=== PATIENT | male | born 1935 | race Caucasian/White ===

== ENCOUNTER 2016-11-16 23:22 | Emergency (ER) | payer MEDICARE, OTHER ==
[2016-11-16] MEDS ORDERED: Cephalexin 500 MG Cap PO ONE (23:47)
[2016-11-17 00:52] VITALS: BP 113/71
--- NOTE | 2016-11-17 02:14 | ER ---
DATE SEEN: 11/16/2016 CHIEF COMPLAINT: Nosebleed. HISTORY OF PRESENT ILLNESS: This is an 81-year-old male with epistaxis. This started tonight spontaneously after he sneezed and bleeding for about an hour, complains of mild headache. PAST MEDICAL HISTORY: Hypertension and CAD. He has been taking Plavix for more than 5 years along with aspirin. SOCIAL HISTORY: He does not smoke or drink. ALLERGIES: No known allergies. MEDICATIONS: Please see the hard copy scanned into the chart. PHYSICAL EXAMINATION: GENERAL: He is a well-nourished male. VITAL SIGNS: His blood pressure is in the 150s systolic. He is afebrile. HEENT: Head is normocephalic. Eyes, normal. Nose, active bleeding from the right nostril. IMPRESSION: Epistaxis. PLAN: My plan, I put Rhino Rocket and I advised him to follow up on Friday or tomorrow to have it removed. For now, I will put him on 5 days of cephalexin to prevent bacterial infection from the Rhino Rocket. Time seen was 11:45 p.m. /[id number] HERACLIO/ONI
== END 2016-11-17 00:50 | disposition home or self-care (01) ==
LOC: FB.ED 23:22
DX: R04.0 Epistaxis (principal); I10 Essential (primary) hypertension; I25.10 Atherosclerotic heart disease of native coronary artery without angina pectoris; Z79.82 Long term (current) use of aspirin
CPT/HCPCS: 30903; 99282; 99283; A9270; 30901

== ENCOUNTER 2018-04-25 11:12 | Inpatient (IN) | payer MEDICARE, OTHER ==
[2018-04-25] MEDS: Potassium Citrate 10 MEQ Tab.ER PO SCH ×2 (14:00→20:08)
[2018-04-25] MEDS ORDERED: Nitroglycerin 0.4 MG Tab.SL SL PRN (14:27)
[2018-04-25] MEDS ORDERED: Cyclobenzaprine 10 MG Tab PO PRN (14:27)
[2018-04-25] MEDS ORDERED: DENOSUMAB 60 MG SUBCUT SCH (14:30)
[2018-04-25] MEDS: Ferrous Sulfate 325 MG Tab PO SCH ×2 (16:48→18:49)
[2018-04-25] MEDS: metFORMIN 1,000 MG Tab PO SCH ×2 (16:48→19:16)
[2018-04-25] MEDS: Acetaminophen 325 MG Tab PO PRN (16:54)
--- NOTE | 2018-04-25 19:28 | PCM.HP ---
H&P History of Present Illness - General Date of Service: 04/25/18 Admit Problem/Dx: Admission Diagnosis/Problem Admission Diagnosis/Problem Knee joint replacement by other means Source of Information: Patient History Limitations: Reports: No Limitations - History of Present Illness Initial Comments - Free Text/Narative: Blu is an 82-year-old male with right knee replacement on the , at [facility] , and is here for rehabilitation. He has a history of hypertension, coronary disease status post 3 stents in 2010, type 2 diabetes BPH that are all stable. A1c 6.0 2 months ago, on metformin. Complains of some pain on the right knee and decreased energy and strength, is otherwise healthy. Blu stays alone in [place], [place]. - Related Data Allergies/Adverse Reactions: Allergies Allergy/AdvReac Type Severity Reaction Status Date / Time Slwaanq-Poe-Nuh Reductase Allergy Joint Pain Verified 11/16/16 23:52 Inhibitor Home Medications: Home Meds Cyclobenzaprine [Flexeril] 5 - 10 mg PO TID PRN 11/17/16 [History] Denosumab [Xgeva] 60 mg SUBCUT ASDIRECTED 11/17/16 [History] Ezetimibe [Zetia] 10 mg PO BEDTIME 11/17/16 [History] Finasteride [Proscar] 5 mg PO DAILY 11/17/16 [History] Metoprolol Tartrate 12.5 mg PO BEDTIME 11/17/16 [History] Multivitamin [Multivitamins] 1 each PO BEDTIME 11/17/16 [History] Nitroglycerin [Nitrostat] 0.4 mg SL Q5M PRN 11/17/16 [History] Tamsulosin [Flomax] 0.4 mg BEDTIME 11/17/16 [History] traZODone 50 mg PO BEDTIME 11/17/16 [History] Acetaminophen [Tylenol] 650 mg PO Q6H PRN 04/25/18 [History] Apixaban [Eliquis] 2.5 mg PO BID 04/25/18 [History] Aspirin 81 mg PO DAILY 04/25/18 [History] Bimatoprost [LUMIGAN 0.01% Ophth Soln] 1 drop EYEBOTH BEDTIME 04/25/18 [History] Cholecalciferol (Vitamin D3) [Vitamin D3] 1,000 unit PO DAILY 04/25/18 [History] Ferrous Gluconate 240 mg PO DAILY 04/25/18 [History] Flaxseed Oil [Flax Oil] 1,000 mg PO BID 04/25/18 [History] Losartan [Cozaar] 25 mg PO BEDTIME 04/25/18 [History] Lutein/Minerals/Vit A,C & E [Ocuvite] 1 tab PO DAILY 04/25/18 [History] Oxybutynin [Oxybutynin ER] 5 mg PO BEDTIME 04/25/18 [History] Potassium 99 mg PO DAILY 04/25/18 [History] Potassium Citrate [Potassium Citrate ER] 15 meq PO BID 04/25/18 [History] Propylene Glycol [Systane Balance] 1 drop EYEBOTH BID PRN 04/25/18 [History] metFORMIN [Glucophage] 1,000 mg PO WITHDINNER 04/25/18 [History] metFORMIN [Glucophage] 500 mg PO WITHBREAKFAST 04/25/18 [History] traMADol [Ultram] 50 mg PO Q4H PRN 04/25/18 [History] Past Medical History HEENT History: Reports: Cataract, Sinusitis, Other (See Below) Other HEENT History: dry eyes Cardiovascular History: Reports: High Cholesterol, [place] Gastrointestinal History: Reports: Cholelithiasis, Colon Polyp, GERD Genitourinary History: Reports: Prostate Disorder, Urinary Incontinence Musculoskeletal History: Reports: Fracture Other Musculoskeletal History: fx ribs, fx breast bone, comp fx spine Endocrine/Metabolic History: Reports: Diabetes, Type II Hematologic History: Reports: Anemia - Infectious Disease History Infectious Disease History: Reports: Chicken Pox, Measles, Mumps - Past Surgical History HEENT Surgical History: Reports: Adenoidectomy, Cataract Surgery, Tonsillectomy Other HEENT Surgeries/Procedures: bilat cataract Cardiovascular Surgical History: Reports: Carotid Stents Other Cardiovascular Surgeries/Procedures: 3 stents placed GI Surgical History: Reports: Appendectomy, Cholecystectomy, Colon, Colonoscopy Musculoskeletal Surgical History: Reports: None Social & Family History - Family History Family Medical History: Noncontributory - Tobacco Use Years of Tobacco use: 30 Second Hand Smoke Exposure: No - Caffeine Use Caffeine Use: Reports: Coffee, Tea Other Caffeine Use: 8-10 cups daily - Alcohol Use Days Per Week of Alcohol Use: 5 Number of Drinks Per Day: 0 Total Drinks Per Week: 0 - Recreational Drug Use Recreational Drug Use: No H&P Review of Systems - Review of Systems: Review Of Systems: ROS reveals no pertinent complaints other than HPI. Exam - Exam Exam: See Below - Vital Signs Vital Signs: Last Vital Signs Temp 98.4 F 04/25/18 19:12 Pulse 81 04/25/18 19:12 Resp 20 04/25/18 19:12 BP 149/44 H 04/25/18 19:12 Pulse Ox 92 L 04/25/18 19:12 Weight: 78.199 kg - Exam General: Alert, Oriented, 4 HEENT: PERRLA, Hearing Intact, Mucosa Moist & Armstrong, Nares Patent, Normal Nasal Septum, Posterior Pharynx Clear, Conjunctiva Clear, EOMI, EACs Clear, TMs Clear Neck: Supple, Trachea Midline, 2 Lungs: Clear to Auscultation, Normal Respiratory Effort Cardiovascular: Regular Rate, Regular Rhythm GI/Abdominal Exam: Normal Bowel Sounds, Soft, Non-Tender, No Organomegaly, No Distention, No Abnormal Bruit, No Mass, Pelvis Stable (Male) Exam: Deferred Rectal (Males) Exam: Deferred Back Exam: Normal Inspection, Full Range of Motion, NT Extremities: Normal Inspection, Normal Range of Motion, Non-Tender, No Pedal Edema, Normal Capillary Refill Skin: Warm, Dry, Intact Neurological: Cranial Nerves Intact, Reflexes Equal Bilateral Neuro Extensive - Mental Status: Alert, Oriented x3, Normal Mood/Affect, Normal Cognition Neuro Extensive - Motor, Sensory, Reflexes: CN II-XII Intact, Normal Gait, Normal Reflexes Psychiatric: Alert, Normal Affect, Normal Mood - Problem List (1) S/P total knee arthroplasty SNOMED Code(s): 7018762895089, 644759504, 9962411182416 ICD Code: Z96.659 - PRESENCE OF UNSPECIFIED ARTIFICIAL KNEE JOINT Status: Acute Current Visit: Yes Qualifiers: Laterality: right Qualified Code(s): Z96.651 - Presence of right artificial knee joint (2) HTN (hypertension) SNOMED Code(s): 20200143 ICD Code: I10 - ESSENTIAL (PRIMARY) HYPERTENSION Status: Chronic Current Visit: Yes Qualifiers: Hypertension type: essential hypertension Qualified Code(s): I10 - Essential (primary) hypertension (3) CAD (coronary artery disease) SNOMED Code(s): 19632011 ICD Code: I25.10 - ATHSCL HEART DISEASE OF [place] CORONARY ARTERY W/O ANG PCTRS Status: Chronic Current Visit: Yes Qualifiers: Coronary Disease-Associated Artery/Lesion type: [place] artery [place] vs. transplanted heart: [place] heart (4) BPH (benign prostatic hyperplasia) SNOMED Code(s): 886091966 ICD Code: N40.0 - BENIGN PROSTATIC HYPERPLASIA WITHOUT LOWER URINRY TRACT SYMP Status: Chronic Current Visit: Yes Qualifiers: Lower urinary tract symptom presence: symptoms present (5) Diabetes type 2, controlled SNOMED Code(s): 10418325, 903429313 ICD Code: E11.9 - TYPE 2 DIABETES MELLITUS WITHOUT COMPLICATIONS Status: Chronic Current Visit: Yes Qualifiers: Diabetes mellitus usp insulin use: without continuous churn buttermaker use Diabetes mellitus complication status: without complication Qualified Code(s): E11.9 - Type 2 diabetes mellitus without complications (6) Osteoporosis SNOMED Code(s): 64287085 ICD Code: M81.0 - AGE-RELATED OSTEOPOROSIS W/O CURRENT PATHOLOGICAL FRACTURE Status: Chronic Current Visit: Yes Qualifiers: Osteoporosis type: age-related (7) Glaucoma SNOMED Code(s): 09287335 ICD Code: H40.9 - UNSPECIFIED GLAUCOMA Status: Chronic Current Visit: Yes Qualifiers: Glaucoma type: open-angle Laterality: unspecified laterality Problem List Initiated/Reviewed/Updated: Yes Orders Last 24hrs: Active Orders 24 hr Category Date Time Status Patient Status [ADT] Routine ADT 04/25/18 11:20 Active Activity as Tolerated [RC] 09,13,17,21 Care 04/25/18 13:45 Active Wound Care [RC] 08,16,00 Care 04/25/18 13:47 Active Consult to Case Management/Motel Manager [CONS] Cons 04/25/18 11:56 Active Routine OT Evaluation and Treatment [CONS] Routine Cons 04/25/18 13:45 Active PT Evaluation and Treatment [CONS] Routine Cons 04/25/18 13:46 Active Regular Diet [DIET] Diet 04/25/18 Dinner Active Acetaminophen [Tylenol] Med 04/25/18 14:27 Active 650 mg PO Q6H PRN Apixaban [Eliquis] Med 04/25/18 21:00 Active 2.5 mg PO BID Aspirin Med 04/26/18 09:00 Active 81 mg PO DAILY Cholecalciferol (Vitamin D3) [Vitamin D3] Med 04/26/18 09:00 Active 1,000 units PO DAILY Cyclobenzaprine [Flexeril] Med 04/25/18 14:27 Active 10 mg PO TID PRN Ezetimibe [Zetia] Med 04/25/18 21:00 Active 10 mg PO BEDTIME Ferrous Sulfate Med 04/25/18 18:00 Active 325 mg PO BIDMEALS Finasteride [Proscar] Med 04/26/18 09:00 Active 5 mg PO DAILY Latanoprost [Xalatan 0.005% Ophth Soln] Med 04/25/18 21:00 Active 0 ml EYEBOTH BEDTIME Losartan [Cozaar] Med 04/25/18 21:00 Active 25 mg PO BEDTIME Metoprolol Tartrate [Lopressor] Med 04/25/18 21:00 Active 12.5 mg PO BEDTIME Multivitamins [Tab-A-Norma] Med 04/25/18 21:00 Active 1 tab PO BEDTIME Nitroglycerin [Nitrostat] Med 04/25/18 14:27 Active 0.4 mg SL Q5M PRN Oxybutynin [Oxybutynin ER] Med 04/25/18 21:00 Active 5 mg PO BEDTIME Potassium Citrate Med 04/25/18 21:00 Active 10 meq PO TID Tamsulosin [Flomax] Med 04/25/18 21:00 Active 0.4 mg PO BEDTIME metFORMIN [Glucophage] Med 04/25/18 18:00 Active 1,000 mg PO WITHDINNER metFORMIN [Glucophage] Med 04/26/18 08:00 Active 500 mg PO WITHBREAKFAST traMADol [Ultram] Med 04/25/18 14:27 Active 50 mg PO Q4H PRN traZODone Med 04/25/18 21:00 Active 50 mg PO BEDTIME Antiembolic Hose [OM.PC] Routine Oth 04/25/18 13:30 Ordered Ice Pack [Ice Therapy] [OM.PC] Routine Oth 04/25/18 13:43 Ordered Medication Orders Acetaminophen (Tylenol) 650 mg PO Q6H PRN PRN Reason: MILD PAIN Last Admin: 04/25/18 16:54 Dose: 650 mg Apixaban (Eliquis) 2.5 mg PO BID CELE Aspirin (Aspirin) 81 mg PO DAILY CELE Cholecalciferol (Vitamin D3) 1,000 units PO DAILY [facility] Cyclobenzaprine HCl (Flexeril) 10 mg PO TID PRN PRN Reason: Spasms Ezetimibe (Zetia) 10 mg PO BEDTIME [facility] Ferrous Sulfate (Ferrous Sulfate) 325 mg PO BIDMEALS [facility] Last Admin: 04/25/18 18:49 Dose: Admin: 04/25/18 16:48 Dose: 325 mg Finasteride (Proscar) 5 mg PO DAILY [facility] Latanoprost (Xalatan 0.005% Ophth Soln) 0 ml EYEBOTH BEDTIME [facility] Losartan Potassium (Cozaar) 25 mg PO BEDTIME [facility] Metformin HCl (Glucophage) 500 mg PO WITHBREAKFAST [facility] Metformin HCl (Glucophage) 1,000 mg PO WITHDINNER [facility] Last Admin: 04/25/18 19:16 Dose: Not Given Admin: 04/25/18 16:48 Dose: 1,000 mg Metoprolol Tartrate (Lopressor) 12.5 mg PO BEDTIME [facility] Multivitamins/Minerals/Vitamin C (Tab-A-Norma) 1 tab PO BEDTIME [facility] Nitroglycerin (Nitrostat) 0.4 mg SL Q5M PRN PRN Reason: Chest Pain Oxybutynin Chloride (Oxybutynin Er) 5 mg PO BEDTIME [facility] Potassium Citrate (Potassium Citrate) 10 meq PO TID [facility] Last Admin: 04/25/18 14:00 Dose: 10 meq Tamsulosin HCl (Flomax) 0.4 mg PO BEDTIME [facility] Tramadol HCl (Ultram) 50 mg PO Q4H PRN PRN Reason: pain Trazodone HCl (Trazodone) 50 mg PO BEDTIME [facility] Assessment/Plan Comment:: Blu is stable,had normal magnesium, and creatinine normalized before discharge. Hemoglobin at discharge was 11.0. We'll continue with current therapy , DVT prophylaxis with aspirin Eloquis, and resume all his home medications with exception of supplements
[2018-04-25] MEDS: Apixaban 2.5 MG Tab PO SCH (20:06)
[2018-04-25] MEDS: Losartan 25 MG Tab PO SCH (20:06)
[2018-04-25] MEDS: Oxybutynin 5 MG Tab.ER PO SCH (20:07)
[2018-04-25] MEDS: Metoprolol Tartrate 25 MG Tab PO SCH (20:07)
[2018-04-25] MEDS: Tamsulosin 0.4 MG Cap.ER PO SCH (20:07)
[2018-04-25] MEDS: Ezetimibe 10 MG Tab PO SCH (20:08)
[2018-04-25] MEDS: traZODone 50 MG Tab PO SCH (20:08)
[2018-04-25] MEDS: Multivitamin Tab PO SCH (20:08)
[2018-04-25] MEDS: Latanoprost 0.005% Ophth Soln 2.5 ML Bottle EYEBOTH SCH (20:09)
[2018-04-26] MEDS: metFORMIN 500 MG Tab PO SCH (09:30)
[2018-04-26] MEDS: Ferrous Sulfate 325 MG Tab PO SCH ×2 (09:30→17:05)
[2018-04-26] MEDS: Potassium Citrate 10 MEQ Tab.ER PO SCH ×3 (09:31→20:04)
[2018-04-26] MEDS: Cholecalciferol (Vitamin D3) 1,000 Unit Tab PO SCH (09:45)
[2018-04-26] MEDS: Finasteride 5 MG Tab PO SCH (09:45)
[2018-04-26] MEDS: Apixaban 2.5 MG Tab PO SCH ×2 (09:45→20:02)
[2018-04-26] MEDS: Aspirin 81 MG Tab.Chew PO SCH (09:45)
[2018-04-26] MEDS: traMADol 50 MG Tab PO PRN (10:02)
[2018-04-26] MEDS: metFORMIN 1,000 MG Tab PO SCH (17:05)
[2018-04-26] MEDS: Losartan 25 MG Tab PO SCH (20:02)
[2018-04-26] MEDS: Tamsulosin 0.4 MG Cap.ER PO SCH (20:03)
[2018-04-26] MEDS: Metoprolol Tartrate 25 MG Tab PO SCH (20:03)
[2018-04-26] MEDS: Oxybutynin 5 MG Tab.ER PO SCH (20:04)
[2018-04-26] MEDS: Multivitamin Tab PO SCH (20:04)
[2018-04-26] MEDS: traZODone 50 MG Tab PO SCH (20:05)
[2018-04-26] MEDS: Ezetimibe 10 MG Tab PO SCH (20:05)
[2018-04-26] MEDS: Latanoprost 0.005% Ophth Soln 2.5 ML Bottle EYEBOTH SCH (20:05)
[2018-04-27] MEDS: traMADol 50 MG Tab PO PRN ×3 (07:35→21:00)
[2018-04-27] MEDS: Finasteride 5 MG Tab PO SCH (09:37)
[2018-04-27] MEDS: Ferrous Sulfate 325 MG Tab PO SCH ×2 (09:38→18:22)
[2018-04-27] MEDS: Potassium Citrate 10 MEQ Tab.ER PO SCH ×3 (09:38→20:57)
[2018-04-27] MEDS: Apixaban 5 MG Tab PO SCH ×2 (09:38→20:54)
[2018-04-27] MEDS: Cholecalciferol (Vitamin D3) 1,000 Unit Tab PO SCH (09:38)
[2018-04-27] MEDS: Aspirin 81 MG Tab.Chew PO SCH (09:38)
[2018-04-27] MEDS: metFORMIN 500 MG Tab PO SCH (09:38)
--- NOTE | 2018-04-27 15:14 | US ---
INDICATION: Right leg pain and swelling, question DVT, post right knee replacement. DUPLEX ULTRASOUND, LOWER EXTREMITY VEINS: Utilizing 2-D real time, duplex Doppler spectral analysis and color flow imaging, examination of the right lower extremity veins was obtained 04/27/18, including common femoral vein, proximal greater saphenous vein, deep femoral vein, popliteal vein, posterior tibial vein, peroneal vein and anterior tibial vein and revealed no evidence of deep venous thrombosis or obstruction. Compression views showed no abnormal lack of compression to suggest thrombosis. No evidence of incompetence of the valves was identified. Interstitial edema was noted in the thigh and upper calf. IMPRESSION: Duplex ultrasound, lower extremity veins, shows no evidence of deep venous thrombosis or incompetence. Faxed to Dr. Elias. [facility]
[2018-04-27] MEDS: Acetaminophen 325 MG Tab PO PRN (18:22)
[2018-04-27] MEDS: metFORMIN 1,000 MG Tab PO SCH (18:23)
[2018-04-27] MEDS: Losartan 25 MG Tab PO SCH (20:52)
[2018-04-27] MEDS: Tamsulosin 0.4 MG Cap.ER PO SCH (20:55)
[2018-04-27] MEDS: Metoprolol Tartrate 25 MG Tab PO SCH (20:55)
[2018-04-27] MEDS: Oxybutynin 5 MG Tab.ER PO SCH (20:56)
[2018-04-27] MEDS: Multivitamin Tab PO SCH (20:57)
[2018-04-27] MEDS: traZODone 50 MG Tab PO SCH (20:57)
[2018-04-27] MEDS: Latanoprost 0.005% Ophth Soln 2.5 ML Bottle EYEBOTH SCH (20:58)
[2018-04-27] MEDS: Ezetimibe 10 MG Tab PO SCH (21:00)
[2018-04-28] MEDS: traMADol 50 MG Tab PO PRN ×2 (06:40→21:57)
[2018-04-28] MEDS: Ferrous Sulfate 325 MG Tab PO SCH ×2 (08:18→17:59)
[2018-04-28] MEDS: metFORMIN 500 MG Tab PO SCH (08:18)
[2018-04-28] MEDS: Apixaban 5 MG Tab PO SCH ×2 (08:18→21:55)
[2018-04-28] MEDS: Aspirin 81 MG Tab.Chew PO SCH (08:18)
[2018-04-28] MEDS: Cholecalciferol (Vitamin D3) 1,000 Unit Tab PO SCH (08:19)
[2018-04-28] MEDS: Finasteride 5 MG Tab PO SCH (08:19)
[2018-04-28] MEDS: Potassium Citrate 10 MEQ Tab.ER PO SCH ×3 (08:19→21:56)
[2018-04-28] MEDS: Acetaminophen 325 MG Tab PO PRN (15:09)
[2018-04-28] MEDS: metFORMIN 1,000 MG Tab PO SCH (17:59)
[2018-04-28] MEDS: Losartan 25 MG Tab PO SCH (21:54)
[2018-04-28] MEDS: Tamsulosin 0.4 MG Cap.ER PO SCH (21:55)
[2018-04-28] MEDS: Ezetimibe 10 MG Tab PO SCH (21:56)
[2018-04-28] MEDS: Multivitamin Tab PO SCH (21:56)
[2018-04-28] MEDS: traZODone 50 MG Tab PO SCH (21:56)
[2018-04-28] MEDS: Oxybutynin 5 MG Tab.ER PO SCH (21:56)
[2018-04-28] MEDS: Metoprolol Tartrate 25 MG Tab PO SCH (21:56)
[2018-04-28] MEDS: Latanoprost 0.005% Ophth Soln 2.5 ML Bottle EYEBOTH SCH (21:56)
[2018-04-29] MEDS: traMADol 50 MG Tab PO PRN ×2 (07:52→22:23)
[2018-04-29] MEDS: metFORMIN 500 MG Tab PO SCH (08:22)
[2018-04-29] MEDS: Ferrous Sulfate 325 MG Tab PO SCH ×2 (08:22→17:31)
[2018-04-29] MEDS: Apixaban 5 MG Tab PO SCH ×2 (08:23→21:33)
[2018-04-29] MEDS: Aspirin 81 MG Tab.Chew PO SCH (08:23)
[2018-04-29] MEDS: Potassium Citrate 10 MEQ Tab.ER PO SCH ×3 (08:23→21:34)
[2018-04-29] MEDS: Finasteride 5 MG Tab PO SCH (08:24)
[2018-04-29] MEDS: Cholecalciferol (Vitamin D3) 1,000 Unit Tab PO SCH (08:25)
[2018-04-29] MEDS ORDERED: PROPYLENE GLYCOL 0.6% EYEBOTH PRN (08:47)
[2018-04-29] MEDS: metFORMIN 1,000 MG Tab PO SCH (17:31)
[2018-04-29] MEDS: Losartan 25 MG Tab PO SCH (21:32)
[2018-04-29] MEDS: Tamsulosin 0.4 MG Cap.ER PO SCH (21:33)
[2018-04-29] MEDS: traZODone 50 MG Tab PO SCH (21:34)
[2018-04-29] MEDS: Metoprolol Tartrate 25 MG Tab PO SCH (21:34)
[2018-04-29] MEDS: Multivitamin Tab PO SCH (21:34)
[2018-04-29] MEDS: Oxybutynin 5 MG Tab.ER PO SCH (21:34)
[2018-04-29] MEDS: Ezetimibe 10 MG Tab PO SCH (21:35)
[2018-04-29] MEDS: Latanoprost 0.005% Ophth Soln 2.5 ML Bottle EYEBOTH SCH (21:38)
[2018-04-30] MEDS: traMADol 50 MG Tab PO PRN ×2 (08:25→20:39)
[2018-04-30] MEDS: Ferrous Sulfate 325 MG Tab PO SCH ×2 (08:27→17:46)
[2018-04-30] MEDS: metFORMIN 500 MG Tab PO SCH (08:28)
[2018-04-30] MEDS: Apixaban 5 MG Tab PO SCH (08:28)
[2018-04-30] MEDS: Aspirin 81 MG Tab.Chew PO SCH (08:28)
[2018-04-30] MEDS: Potassium Citrate 10 MEQ Tab.ER PO SCH ×2 (08:29→14:25)
[2018-04-30] MEDS: Finasteride 5 MG Tab PO SCH (08:29)
[2018-04-30] MEDS: Cholecalciferol (Vitamin D3) 1,000 Unit Tab PO SCH (08:29)
[2018-04-30] MEDS: metFORMIN 1,000 MG Tab PO SCH (17:46)
[2018-04-30] MEDS: Losartan 25 MG Tab PO SCH (20:36)
[2018-05-01] MEDS: Apixaban 5 MG Tab PO SCH ×2 (00:02→09:19)
[2018-05-01] MEDS: Tamsulosin 0.4 MG Cap.ER PO SCH (00:02)
[2018-05-01] MEDS: Metoprolol Tartrate 25 MG Tab PO SCH (00:03)
[2018-05-01] MEDS: Oxybutynin 5 MG Tab.ER PO SCH (00:05)
[2018-05-01] MEDS: Potassium Citrate 10 MEQ Tab.ER PO SCH ×2 (00:31→09:20)
[2018-05-01] MEDS: Multivitamin Tab PO SCH (00:31)
[2018-05-01] MEDS: traZODone 50 MG Tab PO SCH (00:32)
[2018-05-01] MEDS: Latanoprost 0.005% Ophth Soln 2.5 ML Bottle EYEBOTH SCH (00:32)
[2018-05-01] MEDS: Ezetimibe 10 MG Tab PO SCH (00:33)
[2018-05-01] MEDS: Ferrous Sulfate 325 MG Tab PO SCH (09:19)
[2018-05-01] MEDS: metFORMIN 500 MG Tab PO SCH (09:19)
[2018-05-01] MEDS: Aspirin 81 MG Tab.Chew PO SCH (09:19)
[2018-05-01] MEDS: Finasteride 5 MG Tab PO SCH (09:20)
[2018-05-01] MEDS: Cholecalciferol (Vitamin D3) 1,000 Unit Tab PO SCH (09:20)
[2018-05-01] MEDS: traMADol 50 MG Tab PO PRN (09:26)
--- NOTE | 2018-05-01 11:04 | PCM.PN ---
- General Info Date of Service: 05/01/18 Admission Dx/Problem (Free Text): Patient doing well. Wound healing to the right knee. No drainage. States he has little bit of swelling upper thigh discoloration. No pain. - Patient Data Vitals - Most Recent: Last Vital Signs Temp 98.1 F 05/01/18 08:00 Pulse 84 05/01/18 08:00 Resp 19 05/01/18 08:00 BP 116/63 05/01/18 08:00 Pulse Ox 94 L 05/01/18 08:00 Weight - Most Recent: 171 lb 1.6 oz Med Orders - Current: Current Medications Acetaminophen (Tylenol) 650 mg PO Q6H PRN PRN Reason: MILD PAIN Last Admin: 04/28/18 15:09 Dose: 650 mg Apixaban (Eliquis) 2.5 mg PO BID [facility] Stop: 05/04/18 21:01 Last Admin: 05/01/18 09:19 Dose: 2.5 mg Aspirin (Aspirin) 81 mg PO DAILY [facility] Last Admin: 05/01/18 09:19 Dose: 81 mg Cholecalciferol (Vitamin D3) 1,000 units PO DAILY [facility] Last Admin: 05/01/18 09:20 Dose: 1,000 units Cyclobenzaprine HCl (Flexeril) 10 mg PO TID PRN PRN Reason: Spasms Ezetimibe (Zetia) 10 mg PO BEDTIME [facility] Last Admin: 05/01/18 00:33 Dose: 10 mg Ferrous Sulfate (Ferrous Sulfate) 325 mg PO BIDMEALS [facility] Last Admin: 05/01/18 09:19 Dose: 325 mg Finasteride (Proscar) 5 mg PO DAILY [facility] Last Admin: 05/01/18 09:20 Dose: 5 mg Latanoprost (Xalatan 0.005% Ophth Soln) 0 ml EYEBOTH BEDTIME [facility] Last Admin: 05/01/18 00:32 Dose: 1 drop Losartan Potassium (Cozaar) 25 mg PO BEDTIME [facility] Last Admin: 04/30/18 20:36 Dose: 25 mg Metformin HCl (Glucophage) 500 mg PO WITHBREAKFAST [facility] Last Admin: 05/01/18 09:19 Dose: 500 mg Metformin HCl (Glucophage) 1,000 mg PO WITHDINNER [facility] Last Admin: 04/30/18 17:46 Dose: 1,000 mg Metoprolol Tartrate (Lopressor) 12.5 mg PO BEDTIME [facility] Last Admin: 05/01/18 00:03 Dose: 12.5 mg Multivitamins/Minerals/Vitamin C (Tab-A-Norma) 1 tab PO BEDTIME [facility] Last Admin: 05/01/18 00:31 Dose: 1 tab Nitroglycerin (Nitrostat) 0.4 mg SL Q5M PRN PRN Reason: Chest Pain Oxybutynin Chloride (Oxybutynin Er) 5 mg PO BEDTIME [facility] Last Admin: 05/01/18 00:05 Dose: 5 mg Potassium Citrate (Potassium Citrate) 10 meq PO TID [facility] Last Admin: 05/01/18 09:20 Dose: 10 meq Propylene Glycol (Systane Balance) 0 ml EYEBOTH BID PRN PRN Reason: Dry Eyes Last Admin: 04/29/18 09:15 Dose: 1 drop Tamsulosin HCl (Flomax) 0.4 mg PO BEDTIME [facility] Last Admin: 05/01/18 00:02 Dose: 0.4 mg Tramadol HCl (Ultram) 50 mg PO Q4H PRN PRN Reason: pain Last Admin: 05/01/18 09:26 Dose: 50 mg Trazodone HCl (Trazodone) 50 mg PO BEDTIME [facility] Last Admin: 05/01/18 00:32 Dose: 50 mg Discontinued Medications Apixaban (Eliquis) 2.5 mg PO BID [facility] Last Admin: 04/26/18 20:02 Dose: 2.5 mg Latanoprost (Xalatan 0.005% Ophth Soln) 0 ml EYEBOTH BEDTIME [facility] Last Admin: 04/26/18 20:05 Dose: 1 drop Non-Formulary Medication (Denosumab [Xgeva]) 60 mg SUBCUT ASDIRECTED [facility] - Exam Lungs: Normal Respiratory Effort Extremities: Other (No real swelling of the upper thigh that I can see at this time.) Skin: Other (Wound is well-healed without drainage.) - Problem List & Annotations (1) S/P total knee arthroplasty SNOMED Code(s): 7618796242723, 273115710, 4109363752651 Code(s): Z96.659 - PRESENCE OF UNSPECIFIED ARTIFICIAL KNEE JOINT Status: Acute Current Visit: Yes Qualifiers: Laterality: right Qualified Code(s): Z96.651 - Presence of right artificial knee joint (2) BPH (benign prostatic hyperplasia) SNOMED Code(s): 016402061 Code(s): N40.0 - BENIGN PROSTATIC HYPERPLASIA WITHOUT LOWER URINRY TRACT SYMP Status: Chronic Current Visit: Yes Qualifiers: Lower urinary tract symptom presence: symptoms present (3) CAD (coronary artery disease) SNOMED Code(s): 96366174 Code(s): I25.10 - ATHSCL HEART DISEASE OF [place] CORONARY ARTERY W/O ANG PCTRS Status: Chronic Current Visit: Yes Qualifiers: Coronary Disease-Associated Artery/Lesion type: [place] artery [place] vs. transplanted heart: [place] heart (4) Diabetes type 2, controlled SNOMED Code(s): 83081387, 125542087 Code(s): E11.9 - TYPE 2 DIABETES MELLITUS WITHOUT COMPLICATIONS Status: Chronic Current Visit: Yes Qualifiers: Diabetes mellitus senior care insulin use: without termite control servicer use Diabetes mellitus complication status: without complication Qualified Code(s): E11.9 - Type 2 diabetes mellitus without complications (5) Glaucoma SNOMED Code(s): 84305359 Code(s): H40.9 - UNSPECIFIED GLAUCOMA Status: Chronic Current Visit: Yes Qualifiers: Glaucoma type: open-angle Laterality: unspecified laterality (6) HTN (hypertension) SNOMED Code(s): 42404052 Code(s): I10 - ESSENTIAL (PRIMARY) HYPERTENSION Status: Chronic Current Visit: Yes Qualifiers: Hypertension type: essential hypertension Qualified Code(s): I10 - Essential (primary) hypertension (7) Osteoporosis SNOMED Code(s): 41713654 Code(s): M81.0 - AGE-RELATED OSTEOPOROSIS W/O CURRENT PATHOLOGICAL FRACTURE Status: Chronic Current Visit: Yes Qualifiers: Osteoporosis type: age-related - Problem List Review Problem List Initiated/Reviewed/Updated: Yes - Plan Plan:: Discharge to [facility] with PT coming in or outpatient. He needs this for ambulation. Recheck with Dr. Hirsch on May [address] Cueva within a week.
--- NOTE | 2018-05-01 11:13 | PCM.DCSUM1 ---
Discharge Summary - Hospital Course Free Text/Narrative:: Hospital course-patient had PT/OT and wound care. He did well and was able to ambulate and didn't have to be her very long. Every else look at his hemoglobin remained stable. Pain was controlled on tramadol. His wound was glued. He'll follow-up with Dr. tamanna kilpatrick fourth see Dr. Cueva off in 1 week. Brief History: Blu is an 82-year-old male with right knee replacement on the , at [place], and is here for rehabilitation. He has a history of hypertension, coronary disease status post 3 stents in 2010, type 2 diabetes BPH that are all stable. A1c 6.0 2 months ago, on metformin. Complains of some pain on the right knee and decreased energy and strength, is otherwise healthy. Blu stays alone in [place], [place]. Diagnosis: Stroke: No - Discharge Data Discharge Date: 05/01/18 Discharge Disposition: DC/Tfer to [facility] Condition: Good - Discharge Diagnosis/Problem(s) (1) S/P total knee arthroplasty SNOMED Code(s): 6081188021552, 598074801, 4390780157283 ICD Code: Z96.659 - PRESENCE OF UNSPECIFIED ARTIFICIAL KNEE JOINT Status: Acute Current Visit: Yes Qualifiers: Laterality: right Qualified Code(s): Z96.651 - Presence of right artificial knee joint (2) BPH (benign prostatic hyperplasia) SNOMED Code(s): 079364014 ICD Code: N40.0 - BENIGN PROSTATIC HYPERPLASIA WITHOUT LOWER URINRY TRACT SYMP Status: Chronic Current Visit: Yes Qualifiers: Lower urinary tract symptom presence: symptoms present (3) CAD (coronary artery disease) SNOMED Code(s): 63904693 ICD Code: I25.10 - ATHSCL HEART DISEASE OF [place] CORONARY ARTERY W/O ANG PCTRS Status: Chronic Current Visit: Yes Qualifiers: Coronary Disease-Associated Artery/Lesion type: jena artery [place] vs. transplanted heart: jena heart (4) Diabetes type 2, controlled SNOMED Code(s): 50358205, 862677539 ICD Code: E11.9 - TYPE 2 DIABETES MELLITUS WITHOUT COMPLICATIONS Status: Chronic Current Visit: Yes Qualifiers: Diabetes mellitus termite inspector insulin use: without intermediate use Diabetes mellitus complication status: without complication Qualified Code(s): E11.9 - Type 2 diabetes mellitus without complications (5) Glaucoma SNOMED Code(s): 24628415 ICD Code: H40.9 - UNSPECIFIED GLAUCOMA Status: Chronic Current Visit: Yes Qualifiers: Glaucoma type: open-angle Laterality: unspecified laterality (6) HTN (hypertension) SNOMED Code(s): 80323179 ICD Code: I10 - ESSENTIAL (PRIMARY) HYPERTENSION Status: Chronic Current Visit: Yes Qualifiers: Hypertension type: essential hypertension Qualified Code(s): I10 - Essential (primary) hypertension (7) Osteoporosis SNOMED Code(s): 13810645 ICD Code: M81.0 - AGE-RELATED OSTEOPOROSIS W/O CURRENT PATHOLOGICAL FRACTURE Status: Chronic Current Visit: Yes Qualifiers: Osteoporosis type: age-related - Patient Summary/Data Consults: Consultations 04/25/18 11:56 Consult to Case Management/Sawing And Assembly Supervisor [CONS] Routine Comment: Physician Instructions: Service(s) to be Consulted: Case Management Reason for Consult: wishes for transfer to 04/25/18 13:45 OT Evaluation and Treatment [CONS] Routine Please Evaluate and Treat. OT Reason for Consult: ADL's This query below is only for informational purposes and is not editable. Admission Diagnosis/Problem: Knee joint replacement by other means 04/25/18 13:46 PT Evaluation and Treatment [CONS] Routine Please Evaluate and Treat. PT Reason for Consult: Strengthening Special Instructions: WBAT, Right TKA This query below is only for informational purposes and is not editable. Admission Diagnosis/Problem: Knee joint replacement by other means - Patient Instructions Diet: Diabetic Diet Activity: As Tolerated Driving: May Drive Today Showering/Bathing: May Shower Other/Special Instructions: 1. PT. 2. Recheck with orthopedic surgery on May 11. 3. Make appointment with Dr. Cueva within a week. - Discharge Plan Prescriptions/Med Rec: Apixaban [Eliquis] 2.5 mg PO BID #10 tablet traMADol [Ultram] 50 mg PO Q4H PRN #60 tablet PRN Reason: Pain (Severe 7-10) traZODone 50 mg PO BEDTIME #60 tablet Home Medications: Home Meds Cyclobenzaprine [Flexeril] 5 - 10 mg PO TID PRN 11/17/16 [History] Denosumab [Xgeva] 60 mg SUBCUT ASDIRECTED 11/17/16 [History] Ezetimibe [Zetia] 10 mg PO BEDTIME 11/17/16 [History] Finasteride [Proscar] 5 mg PO DAILY 11/17/16 [History] Metoprolol Tartrate 12.5 mg PO BEDTIME 11/17/16 [History] Multivitamin [Multivitamins] 1 each PO BEDTIME 11/17/16 [History] Nitroglycerin [Nitrostat] 0.4 mg SL Q5M PRN 11/17/16 [History] Tamsulosin [Flomax] 0.4 mg BEDTIME 11/17/16 [History] Acetaminophen [Tylenol] 650 mg PO Q6H PRN 04/25/18 [History] Aspirin 81 mg PO DAILY 04/25/18 [History] Bimatoprost [LUMIGAN 0.01% Ophth Soln] 1 drop EYEBOTH BEDTIME 04/25/18 [History] Cholecalciferol (Vitamin D3) [Vitamin D3] 1,000 unit PO DAILY 04/25/18 [History] Ferrous Gluconate 240 mg PO DAILY 04/25/18 [History] Flaxseed Oil [Flax Oil] 1,000 mg PO BID 04/25/18 [History] Losartan [Cozaar] 25 mg PO BEDTIME 04/25/18 [History] Lutein/Minerals/Vit A,C & E [Ocuvite] 1 tab PO DAILY 04/25/18 [History] Oxybutynin [Oxybutynin ER] 5 mg PO BEDTIME 04/25/18 [History] Potassium 99 mg PO DAILY 04/25/18 [History] Potassium Citrate [Potassium Citrate ER] 15 meq PO BID 04/25/18 [History] Propylene Glycol [Systane Balance] 1 drop EYEBOTH BID PRN 04/25/18 [History] metFORMIN [Glucophage] 1,000 mg PO WITHDINNER 04/25/18 [History] metFORMIN [Glucophage] 500 mg PO WITHBREAKFAST 04/25/18 [History] Apixaban [Eliquis] 2.5 mg PO BID #10 tablet 05/01/18 [Rx] Ferrous Sulfate 325 mg PO BIDMEALS tablet 05/01/18 [Rx] traMADol [Ultram] 50 mg PO Q4H PRN #60 tablet 05/01/18 [Rx] traZODone 50 mg PO BEDTIME #60 tablet 05/01/18 [Rx] Patient Handouts: Total Knee Replacement, [id number], Fall Prevention in Hospitals, Adult, Deep Vein Thrombosis, Diabetes Mellitus and Nutrition - Discharge Summary/Plan Comment DC Time >30 min.: No - Patient Data Vitals - Most Recent: Last Vital Signs Temp 98.1 F 05/01/18 08:00 Pulse 84 05/01/18 08:00 Resp 19 05/01/18 08:00 BP 116/63 05/01/18 08:00 Pulse Ox 94 L 05/01/18 08:00 Weight - Most Recent: 171 lb 1.6 oz Med Orders - Current: Current Medications Acetaminophen (Tylenol) 650 mg PO Q6H PRN PRN Reason: MILD PAIN Last Admin: 04/28/18 15:09 Dose: 650 mg Apixaban (Eliquis) 2.5 mg PO BID [facility] Stop: 05/04/18 21:01 Last Admin: 05/01/18 09:19 Dose: 2.5 mg Aspirin (Aspirin) 81 mg PO DAILY [facility] Last Admin: 05/01/18 09:19 Dose: 81 mg Cholecalciferol (Vitamin D3) 1,000 units PO DAILY [facility] Last Admin: 05/01/18 09:20 Dose: 1,000 units Cyclobenzaprine HCl (Flexeril) 10 mg PO TID PRN PRN Reason: Spasms Ezetimibe (Zetia) 10 mg PO BEDTIME [facility] Last Admin: 05/01/18 00:33 Dose: 10 mg Ferrous Sulfate (Ferrous Sulfate) 325 mg PO BIDMEALS [facility] Last Admin: 05/01/18 09:19 Dose: 325 mg Finasteride (Proscar) 5 mg PO DAILY [facility] Last Admin: 05/01/18 09:20 Dose: 5 mg Latanoprost (Xalatan 0.005% Ophth Soln) 0 ml EYEBOTH BEDTIME [facility] Last Admin: 05/01/18 00:32 Dose: 1 drop Losartan Potassium (Cozaar) 25 mg PO BEDTIME [facility] Last Admin: 04/30/18 20:36 Dose: 25 mg Metformin HCl (Glucophage) 500 mg PO WITHBREAKFAST [facility] Last Admin: 05/01/18 09:19 Dose: 500 mg Metformin HCl (Glucophage) 1,000 mg PO WITHDINNER [facility] Last Admin: 04/30/18 17:46 Dose: 1,000 mg Metoprolol Tartrate (Lopressor) 12.5 mg PO BEDTIME [facility] Last Admin: 05/01/18 00:03 Dose: 12.5 mg Multivitamins/Minerals/Vitamin C (Tab-A-Norma) 1 tab PO BEDTIME [facility] Last Admin: 05/01/18 00:31 Dose: 1 tab Nitroglycerin (Nitrostat) 0.4 mg SL Q5M PRN PRN Reason: Chest Pain Oxybutynin Chloride (Oxybutynin Er) 5 mg PO BEDTIME [facility] Last Admin: 05/01/18 00:05 Dose: 5 mg Potassium Citrate (Potassium Citrate) 10 meq PO TID [facility] Last Admin: 05/01/18 09:20 Dose: 10 meq Propylene Glycol (Systane Balance) 0 ml EYEBOTH BID PRN PRN Reason: Dry Eyes Last Admin: 04/29/18 09:15 Dose: 1 drop Tamsulosin HCl (Flomax) 0.4 mg PO BEDTIME [facility] Last Admin: 05/01/18 00:02 Dose: 0.4 mg Tramadol HCl (Ultram) 50 mg PO Q4H PRN PRN Reason: pain Last Admin: 05/01/18 09:26 Dose: 50 mg Trazodone HCl (Trazodone) 50 mg PO BEDTIME [facility] Last Admin: 05/01/18 00:32 Dose: 50 mg Discontinued Medications Apixaban (Eliquis) 2.5 mg PO BID [facility] Last Admin: 04/26/18 20:02 Dose: 2.5 mg Latanoprost (Xalatan 0.005% [facility] Soln) 0 ml EYEBOTH BEDTIME [facility] Last Admin: 04/26/18 20:05 Dose: 1 drop Non-Formulary Medication (Denosumab [Xgeva]) 60 mg SUBCUT ASDIRECTED [facility]
[2018-05-01 15:07] VITALS: BP 118/66
== END 2018-05-01 13:06 | disposition home or self-care (01) | DRG 561 ==
LOC: FB.MS 11:12
PROVIDERS: ADMIT Family Medicine; ATTEND Family Medicine
DX: Z47.1 Aftercare following joint replacement surgery (principal); Z96.651 Presence of right artificial knee joint; Z98.890 Other specified postprocedural states; I10 Essential (primary) hypertension; I25.10 Atherosclerotic heart disease of native coronary artery without angina pectoris; Z95.5 Presence of coronary angioplasty implant and graft; E11.9 Type 2 diabetes mellitus without complications; N40.0 Benign prostatic hyperplasia without lower urinary tract symptoms; M81.0 Age-related osteoporosis without current pathological fracture; H40.9 Unspecified glaucoma; Z79.82 Long term (current) use of aspirin; Z79.01 Long term (current) use of anticoagulants; Z79.84 Long term (current) use of oral hypoglycemic drugs; Z88.8 Allergy status to other drugs, medicaments and biological substances
CPT/HCPCS: 36415; 80053; 83735; 85025; 85651; 86140; 93971-RT; 97110-GP; 97116-GP; 97161-GP; 97165-GO; A9270-GY